=== PATIENT | female | born 1985 | race African-American/Black ===

== ENCOUNTER 2020-02-29 14:08 | Emergency (ER) | payer SELFPAY ==
[~2020-02-29] VITALS: Ht 162.6 cm; Wt 119.0 kg
[2020-02-29] MEDS ORDERED: IBUPROFEN 600MG TABLET PO ONE (14:45)
[2020-02-29 16:32] VITALS: BP 144/87
== END 2020-02-29 16:35 | disposition home or self-care (01) ==
LOC: ER 14:08
DX: S89.92XA Unspecified injury of left lower leg, initial encounter (principal); E11.9 Type 2 diabetes mellitus without complications; W01.0XXA Fall on same level from slipping, tripping and stumbling without subsequent striking against object, initial encounter; Y93.89 Activity, other specified; Y92.89 Other specified places as the place of occurrence of the external cause; Y99.8 Other external cause status
CPT/HCPCS: 73562; 99283; L1830